=== PATIENT | male | born 1990 | race African-American/Black ===

== ENCOUNTER 2016-08-06 04:30 | Emergency (ER) | payer MEDICAID ==
[~2016-08-06] VITALS: Ht 167.6 cm; Wt 58.6 kg
[2016-08-06 04:32] VITALS: BP 106/73
== END 2016-08-06 05:28 | disposition home or self-care (01) ==
LOC: ED 05:15
DX: H66.002 Acute suppurative otitis media without spontaneous rupture of ear drum, left ear (principal); H61.21 Impacted cerumen, right ear; Z77.22 Contact with and (suspected) exposure to environmental tobacco smoke (acute) (chronic); Z90.79 Acquired absence of other genital organ(s)
CPT/HCPCS: 99283

== ENCOUNTER 2018-02-04 15:35 | Emergency (ER) | payer MEDICAID, OTHER ==
[~2018-02-04] VITALS: Ht 170.2 cm; Wt 64.0 kg
[2018-02-04 15:43] VITALS: BP 143/69
[2018-02-04] MEDS ORDERED: CEFTRIAXONE 250 MG IM ONE (17:00)
[2018-02-04] MEDS ORDERED: AZITHROMYCIN 500 MG TABLET PO ONE (17:00)
[2018-02-04] MEDS ORDERED: AZITHROMYCIN 500 MG TABLET ONE (17:01)
[2018-02-04] MEDS ORDERED: CEFTRIAXONE 250 MG ONE (17:01)
== END 2018-02-04 17:26 | disposition home or self-care (01) ==
LOC: ED 17:20
DX: N34.2 Other urethritis (principal); F17.200 Nicotine dependence, unspecified, uncomplicated
CPT/HCPCS: 87491; 87591; 96372; 99284; J0696

== ENCOUNTER 2018-08-26 05:00 | Emergency (ER) | payer MEDICAID ==
[~2018-08-26] VITALS: Ht 167.6 cm; Wt 58.0 kg
[2018-08-26 05:04] VITALS: BP 133/83
--- NOTE | 2018-08-26 05:21 | NUR ---
assessment made. chart up for MD to see.
--- NOTE | 2018-08-26 05:22 | NUR ---
PA at bedside.
[2018-08-26] MEDS ORDERED: CEFTRIAXONE 250 MG ONE (05:41)
[2018-08-26] MEDS ORDERED: AZITHROMYCIN 250 MG TABLET ONE (05:42)
[2018-08-26] MEDS ORDERED: CEFTRIAXONE 250 MG IM ONE (06:00)
[2018-08-26] MEDS ORDERED: AZITHROMYCIN 500 MG TABLET PO ONE (06:00)
[2018-08-26 06:39] LABS: CULTURE INDICATED? YES; MICROSCOPIC INDICATED
== END 2018-08-26 07:14 | disposition home or self-care (01) ==
LOC: ED 07:04
DX: N34.2 Other urethritis (principal); R30.0 Dysuria
CPT/HCPCS: 81001; 87086; 87491; 87591; 96372; 99283; J0696

== ENCOUNTER 2019-04-18 13:18 | Emergency (ER) | payer MEDICAID ==
[~2019-04-18] VITALS: Ht 165.1 cm; Wt 62.7 kg
[2019-04-18 13:27] VITALS: BP 114/45
[2019-04-18] MEDS ORDERED: LIDOCAINE-MPF 1%, 5ML INFIL ONE (14:00)
== END 2019-04-18 15:25 | disposition home or self-care (01) ==
LOC: ED 14:55
DX: S61.210A Laceration without foreign body of right index finger without damage to nail, initial encounter (principal); F17.200 Nicotine dependence, unspecified, uncomplicated; X58.XXXA Exposure to other specified factors, initial encounter; Y93.89 Activity, other specified; Y92.009 Unspecified place in unspecified non-institutional (private) residence as the place of occurrence of the external cause; Y99.8 Other external cause status
CPT/HCPCS: 12001; 99283